=== PATIENT | female | born 1975 | race Caucasian/White ===

== ENCOUNTER 2024-06-09 09:02 | Emergency (ER) | payer OTHER ==
[2024-06-09 09:11] VITALS: RESP 18; BMI 28.8
[2024-06-09] MEDS ORDERED: KETOROLAC TROMETHAMINE 30 MG/1 ML VIAL ONE (09:51)
[2024-06-09] MEDS ORDERED: DEXAMETHASONE SOD PHOSPHATE 10 MG/1 ML VIAL ONE (09:52)
[2024-06-09] MEDS: DEXAMETHASONE LIQUID 0.5 MG/5 ML PO ONE (10:30)
[2024-06-09] MEDS: SODIUM CHLORIDE 0.9% 500 ML INFUS.BAG IV ONE (10:35)
[2024-06-09] MEDS: KETOROLAC TROMETHAMINE 30 MG/1 ML VIAL IVPB ONE (10:35)
[2024-06-09 11:13] LABS: ALBUMIN 3.6 g/dl (3.4-5.0); CALCIUM 9.2 mg/dL (8.5-10.1)
[2024-06-09 11:14] LABS: BLOOD UREA NITROGEN 15.6 mg/dL (7-18)
[2024-06-09 11:17] LABS: CREATININE 0.9 mg/dL (0.55-1.3)
[2024-06-09 11:18] LABS: BILIRUBIN,TOTAL 0.4 mg/dL (0.2-1); TOT PROT 8.1 g/dl (6.4-8.2)
[2024-06-09] MEDS ORDERED: PENICILLIN G BENZATHINE 1,200,000 UNIT/2 ML PFS IM ONE (11:30)
[2024-06-09] MEDS: PENICILLIN G BENZATHINE 1,200,000 UNIT/2 ML PFS IM ONE (11:35)
[2024-06-09 12:38] LABS: HCV DIAGNOSTIC IN-HOUSE W/RFLX NON-REACTIVE (NONREACTIVE)
[2024-06-09 12:39] LABS: HIV INTERPRETATION NEGATIVE (NEGATIVE)
[2024-06-09 12:56] LABS: ABSOLUTE IMMATURE GRANULOCYTES 0.03 x10^3/uL (0.0-0.031); BASOPHILS # 0.04 x10^3/uL (0.01-0.08); EOSINOPHIL % 0.2 % (0.7-5.8); EOSINOPHILS # 0.04 x10^3/uL (0.04-0.36); HEMATOCRIT 40.7 % (34.1-44.9); HEMOGLOBIN 13.4 g/dL (11.2-15.7); MCHC 32.9 g/dl (32.2-35.5); MEAN CELL VOLUME 87.9 fl (79.4-94.8); MEAN PLT VOLUME 10.5 fl (9.4-12.3); MONOCYTE # 1.29 x10^3/uL (0.24-0.86); MONOCYTE % 7.4 % (4.7-12.5); PLATELET COUNT 325 x10^3/uL (182-369); RDW 11.7 % (12.3-16.6)
[2024-06-09 13:19] VITALS: BP 121/80; PULSE 68; TEMP 98.8
== END 2024-06-09 13:30 | disposition home or self-care (01) ==
LOC: JER 09:02 → JERFT 09:02 → JER 13:30
PROC: 3E033GC Introduction of Other Therapeutic Substance into Peripheral Vein, Percutaneous Approach (ICD-10-PCS; principal; 2024-06-09)
PROC: 3E0333Z Introduction of Anti-inflammatory into Peripheral Vein, Percutaneous Approach (ICD-10-PCS; 2024-06-09)
PROC: 3E02329 Introduction of Other Anti-infective into Muscle, Percutaneous Approach (ICD-10-PCS; 2024-06-09)
DX: J02.0 Streptococcal pharyngitis (principal); R50.9 Fever, unspecified; L50.9 Urticaria, unspecified
CPT/HCPCS: 0241U-QW; 36415; 80053; 85025; 85651; 86038; 86140; 86803; 87389; 87651; 99284-25